=== PATIENT | male | born 1950 | race Caucasian/White ===

== ENCOUNTER 2021-08-23 09:00 | Day surgery (SDC) | payer OTHER, BC ==
[~2021-08-23] VITALS: Ht 177.8 cm; Wt 86.2 kg
[2021-08-23 10:01] LABS: BASOPHILS % (AUTO) 0.7 % (0.0-2.0); EOSINOPHILS # (AUTO) 0.1 K/uL (0-0.4); EOSINOPHILS % (AUTO) 2.5 % (0.0-4.0); HEMATOCRIT 43.6 % (36-52); HEMOGLOBIN 15.2 g/dL (12.0-18.0); LYMPHOCYTES % (AUTO) 33.7 % (20.5-51.1); MEAN CORPUSCULAR HEMOGLOBIN 34 pg (27-31); MEAN CORPUSCULAR HGB CONC 35 g/dL (33-37); MEAN CORPUSCULAR VOLUME 97.2 fL (80-94); MONOCYTES # (AUTO) 0.5 K/uL (0.8-1.0); MONOCYTES % (AUTO) 7.9 % (1.7-9.3); NEUTROPHILS # (AUTO) 3.3 K/uL (1.8-7.7); NEUTROPHILS % (AUTO) 55.2 % (42.2-75.2); PLATELET COUNT (AUTO) 195 K/uL (140-450); RED BLOOD CELL COUNT(AUTO) 4.49 MIL/uL (4.20-6.10); RED CELL DISTRIBUTION WIDTH 13.8 % (11.6-13.7); WHITE BLOOD COUNT (AUTO) 5.9 K/uL (4.8-10.8)
[2021-08-23] MEDS ORDERED: LIDOCAINE 2% 1000 MG/50 ML VIAL INJ ONE ×2 (11:42→14:15)
[2021-08-23] MEDS ORDERED: fentaNYL citrate 0.05 MG/ML VIAL ONE (11:49)
[2021-08-23] MEDS ORDERED: fentaNYL citrate 0.05 MG/ML VIAL IVP ONE (14:15)
== END 2021-08-23 13:10 | disposition home or self-care (01) ==
LOC: MDS 09:00 → MMU 09:01 → MDS 13:10
PROVIDERS: ATTEND Internal Medicine Gastroenterology
DX: R94.5 Abnormal results of liver function studies (principal); R74.01 Elevation of levels of liver transaminase levels; Z20.822 Contact with and (suspected) exposure to COVID-19; Z79.01 Long term (current) use of anticoagulants; Z79.899 Other long term (current) drug therapy
CPT/HCPCS: 36415; 47000; 76942; 85025; 85610; 85730; 87426; 88307; 88313; J2001; J3010; Q0092